=== PATIENT | male | born 1990 | race Caucasian/White ===

== ENCOUNTER 2016-12-30 22:25 | Emergency (ER) | payer SELFPAY ==
--- NOTE | ~2016-12-30 | CT52 ---
[facility] A Service of [facility] RADIOLOGY TEXT RESULTS PATIENT: JOANN CALVIN LOCATION: SED : [birth year] UNIT #: [id number] AGE: [address]: Gulshan eRed MD SEX: M ORDER DR: [id number] [place] [id number] E MR#: [id number] Acc #: [id number] NAME: JOANN CALVIN : 1990 SEX: M STUDY DATE/TIME: 12/30/2016 23:31 UNIT: SED ROOM: STUDY DESCRIPTION: CT Cervical Spine Wo Cont Attending Physician: Gulshan Reed M.D. Ordering Physician: Gulshan Reed M.D. Primary Care Physician: Primary Care Physician No MEDICAL IMAGING REPORT This report is preliminary unless electronic signature is present. EXAM Cervical spine CT, 12/30 23:31 INDICATIONS Nausea and vomiting for 2 days. Syncopal episode this morning. Patient fell and hit head and was unconscious for an hour. Neck pain and stiffness since that time. TECHNIQUE Axial images were obtained through the cervical spine without contrast. Multiplanar reformats were obtained. No comparison. This CT exam was performed with one or more of the following radiation dose reduction techniques: Automatic exposure control, adjustment of mA and/or kV according to patient size, and iterative reconstruction. FINDINGS Note is made of a small right cervical rib. No fracture or subluxation is seen. No significant disc bulging or herniation is identified. There is no central canal or neural foraminal stenosis. IMPRESSION Negative cervical spine CT. Dictated by... Lucian Duran Jr., M.D. THIS IS AN ELECTRONICALLY VERIFIED REPORT Lucian Duran Jr., M.D. at 12/31/2016 6:01 AM MAMEK/alfred TD: 12/31/2016 00:50 [facility] A Service of [facility] RADIOLOGY TEXT RESULTS PATIENT: JOANN CALVIN LOCATION: SED : 90 UNIT #: [id number] AGE: [address]: Gulshan Reed MD SEX: M ORDER DR: JOB #: [id number] MEDICAL IMAGING REPORT Page 1 of 1
--- NOTE | ~2016-12-30 | EKG ---
PATIENT: JOANN CALVIN UNIT #: [id number] Ventricular Rate: 77 BPM Atrial Rate: 77 BPM P-R Interval: 144 ms QRS Duration: 84 ms Q-T Interval: 382 ms QTC Calculation(Bezet): 432 ms P [place]: 32 degrees Calculated R [place]: 64 degrees Calculated T [place]: 21 degrees Diagnosis Line: Sinus rhythm with occasional Premature ventricular Diagnosis Line: complexes and Fusion complexes Diagnosis Line: Otherwise normal ECG Diagnosis Line: No previous ECGs available Diagnosis Line: Confirmed by LEVI COVARRUBIAS MD ([id number]) on 12/31/2016 Diagnosis Line: 5:25:36 PM INTERPRETING MD: SATISH MENDEZ
--- NOTE | ~2016-12-30 | CT71 ---
[facility] A Service of [facility] RADIOLOGY TEXT RESULTS PATIENT: JOANN CALVIN LOCATION: SED : 90 UNIT #: [id number] AGE: [address]: Gulshan Reed MD SEX: M ORDER DR: [id number] [place] [id number] E MR#: [id number] Acc #: [id number] NAME: JOANN CALVIN : 1990 SEX: M STUDY DATE/TIME: 12/30/2016 23:20 UNIT: SED ROOM: STUDY DESCRIPTION: CT Head Wo Contrast Attending Physician: Gulshan Reed M.D. Ordering Physician: Gulshan Reed M.D. Primary Care Physician: Primary Care Physician No MEDICAL IMAGING REPORT This report is preliminary unless electronic signature is present. EXAM Head CT, 12/30 23:20 INDICATIONS Nausea and vomiting for 2 days. Syncopal episode this morning, hitting head. Loss of consciousness for about an hour. Nosebleed. This CT exam was performed with one or more of the following radiation dose reduction techniques: Automatic exposure control, adjustment of mA and/or kV according to patient size, and iterative reconstruction. COMPARISON None FINDINGS Axial images were obtained from the base to the vertex without contrast. Ventricular size and configuration are within normal limits. There is no acute infarct or hemorrhage. There are no masses. No skull fracture. There is some chronic mucosal thickening in the ethmoid air cells. Small fluid level noted right maxillary sinus may indicate a very mild degree of acute sinusitis. IMPRESSION Brain is normal and there are no skull fractures. There is some mild chronic mucosal thickening in bilateral ethmoid air cells. Trace amount of fluid in the maxillary sinus on the right may reflect a mild degree of acute sinus disease. Dictated by... Lucian Duran Jr., M.D. THIS IS AN ELECTRONICALLY VERIFIED REPORT [facility] A Service of [facility] RADIOLOGY TEXT RESULTS PATIENT: JOANN CALVIN LOCATION: SED : 90 UNIT #: [id number] AGE: [address]: Gulshan Reed MD SEX: M ORDER DR: Lucian Duran Jr., M.D. at 12/31/2016 6:01 AM LASHON/alfred TD: 12/31/2016 00:47 JOB #: [id number] MEDICAL IMAGING REPORT Page 1 of 1
[~2016-12-30 22:25] MED LIST: IBUPROFEN800 MG PO; LORTAB 5/500 TA1 TA1 PO; NO MEDICATIONS
[2016-12-30 23:52] LABS: URINE SOURCE CLEAN CATCH
[2016-12-30 23:54] LABS: URINE APPEARANCE CLEAR; URINE BILIRUBIN NEG (NEG); URINE BLOOD NEG (NEG); URINE COLOR YELLOW; URINE GLUCOSE NEG (NORM); URINE KETONE NEG (NEG); URINE LEUKOCYTE ESTERASE NEG (NEG); URINE NITRATE NEG (NEG); URINE PROTEIN NEG (NEG)
[2016-12-30 23:55] LABS: MICRO INDICATED? NO
[2016-12-30 23:58] LABS: BASOPHIL# 0.1 X10e3 (0-0.3); BASOPHIL% 0.7 % (0-2.5); EOSINOPHIL# 0.2 X10e3 (0-0.7); EOSINOPHIL% 2.2 % (0.0-7.0); HEMOGLOBIN 16.4 gm/dL (13.0-16.0); LYMPHOCYTE# 2.1 X10e3 (1.0-3.5); LYMPHOCYTE% 23.3 % (17.0-45.0); MEAN CELL VOLUME 84.7 FL (83-96); MEAN CORPUSCULAR HEMOGLOBIN 29.5 PG (28-34); MEAN CORPUSCULAR HGB CONC 34.8 g/dL (30-36); MEAN PLATELET VOLUME 8.8 FL (6.5-11.5); MONOCYTE# 0.8 X10e3 (0-1.0); MONOCYTE% 8.8 % (3.0-12.0); NEUTROPHIL# 5.7 X10e3 (1.5-7.1); PLATELET COUNT 245 X10e3 (140-420); RED BLOOD COUNT 5.55 X10e (3.90-5.60); RED CELL DISTRIBUTION WIDTH 13.5 % (11.0-15.5); WHITE BLOOD COUNT 8.8 X10e3 (4.0-10.5)
[2016-12-31] LABS: DIFF IND NO
[2016-12-31 00:13] LABS: ALBUMIN SERUM 4.7 g/dL (3.5-5.0); BILIRUBIN, DIRECT 0.1 mg/dL (0.0-0.2); BILIRUBIN,INDIRECT 0.4 mg/dL (0.0-0.9); BILIRUBIN,TOTAL 0.5 mg/dL (0.2-2.0); BUN/CREATININE RATIO 8.88; CALCIUM SERUM 9.1 mg/dL (8.4-10.2); CREATININE SERUM 0.9 mg/dL (0.6-1.4); GLOM FILT RATE Estimated 117.5 mL/min (>60); POTASSIUM 3.8 mmol/L (3.5-5.1); PROTEIN TOTAL SERUM 7.9 g/dL (6.0-8.3)
== END 2016-12-31 01:30 | disposition home or self-care (01) ==
LOC: SED 22:25
PROVIDERS: Emergency Medicine
DX: S06.0X0A Concussion without loss of consciousness, initial encounter (principal); S16.1XXA Strain of muscle, fascia and tendon at neck level, initial encounter; R55 Syncope and collapse; E86.0 Dehydration; X58.XXXA Exposure to other specified factors, initial encounter
CPT/HCPCS: 36415; 70450; 72125; 80048; 80076; 81003; 85025; 93005; 96361; 96374; 96375; 99284; J1885; J2405

== ENCOUNTER 2017-02-01 10:35 | Emergency (ER) | payer OTHER | END 2017-02-01 11:20 | disposition home or self-care (01) | LOC: SED 10:35 | DX: L03.312 Cellulitis of back [any part except buttock and flank] (principal) | CPT/HCPCS: 99282 ==

== ENCOUNTER 2017-02-25 10:44 | Emergency (ER) | payer SELFPAY ==
[2017-02-25 11:49] LABS: BASOPHIL# 0.1 X10e3 (0-0.3); BASOPHIL% 0.9 % (0-2.5); EOSINOPHIL# 0.1 X10e3 (0-0.7); EOSINOPHIL% 1.5 % (0.0-7.0); HEMATOCRIT 45.5 % (38.0-50.0); HEMOGLOBIN 15.5 gm/dL (13.0-16.0); LYMPHOCYTE# 1.5 X10e3 (1.0-3.5); LYMPHOCYTE% 23.6 % (17.0-45.0); MEAN CELL VOLUME 84.8 FL (83-96); MEAN CORPUSCULAR HEMOGLOBIN 28.9 PG (28-34); MEAN CORPUSCULAR HGB CONC 34.1 g/dL (30-36); MONOCYTE# 0.5 X10e3 (0-1.0); MONOCYTE% 8.4 % (3.0-12.0); NEUTROPHIL# 4.2 X10e3 (1.5-7.1); NEUTROPHIL% 65.6 % (40-75); PLATELET COUNT 212 X10e3 (140-420); RED BLOOD COUNT 5.36 X10e (3.90-5.60); RED CELL DISTRIBUTION WIDTH 13.5 % (11.0-15.5); WHITE BLOOD COUNT 6.4 X10e3 (4.0-10.5)
[2017-02-25 11:54] LABS: DIFF IND NO
[2017-02-25 12:03] LABS: URINE SOURCE CLEAN CATCH
[2017-02-25 12:05] LABS: URINE APPEARANCE CLEAR; URINE BILIRUBIN NEG (NEG); URINE BLOOD NEG (NEG); URINE COLOR YELLOW; URINE GLUCOSE NEG (NORM); URINE KETONE NEG (NEG); URINE LEUKOCYTE ESTERASE NEG (NEG); URINE NITRATE NEG (NEG); URINE PROTEIN NEG (NEG); URINE UROBILINOGEN 0.2 MG/DL (NORM)
[2017-02-25 12:06] LABS: MICRO INDICATED? NO
[2017-02-25 12:07] LABS: ALBUMIN SERUM 4.7 g/dL (3.5-5.0); BILIRUBIN, DIRECT 0.1 mg/dL (0.0-0.2); BILIRUBIN,INDIRECT 0.5 mg/dL (0.0-0.9); BILIRUBIN,TOTAL 0.6 mg/dL (0.2-2.0); BUN/CREATININE RATIO 12.22; CALCIUM SERUM 8.9 mg/dL (8.4-10.2); CREATININE SERUM 0.9 mg/dL (0.6-1.4); GLOM FILT RATE Estimated 117.5 mL/min (>60); POTASSIUM 3.7 mmol/L (3.5-5.1)
== END 2017-02-25 13:09 | disposition home or self-care (01) ==
LOC: SED 10:44
PROVIDERS: Emergency Medicine
DX: R11.2 Nausea with vomiting, unspecified (principal); R19.7 Diarrhea, unspecified; I10 Essential (primary) hypertension
CPT/HCPCS: 36415; 80048; 80076; 81003; 83690; 85025; 96361; 96374; 96375; 99284; J2405